=== PATIENT | male | born 1995 | race African-American/Black ===

== ENCOUNTER 2021-07-20 15:20 | Inpatient (IN) ==
[2021-07-20] MEDS ORDERED: dexAMETHasone 6 MG in SYRINGE 0 ML IV ONE (15:42)
--- NOTE | 2021-07-20 15:52 | Emergency Department Note ---
History of Present Illness General Chief complaint: Shortness of Breath/Dyspnea Stated complaint: covid + Time Seen by Provider: 07/20/21 15:25 Source: patient Mode of arrival: other History of Present Illness Provider complaint: Shortness of breath and hypoxemia Onset (ago): week(s) Location: chest Pain Consistency: + constant Maximum Pain Intensity: 0 Quality: + other (Short of breath) Relieved By: + other (Oxygen) Associated symptoms: + cough, + fever/chills and + shortness of breath; no chest pain or no nausea/vomiting This is a 26-year-old brought in from the local correctional facility for hypoxemia. The patient was diagnosed with COVID-19. He has had symptoms for about 14 days at least. He has had a cough, shortness of breath and fevers. He denies any loss of taste or smell or diarrhea. He was seen earlier today and discharged home after evaluation.. Prior to arrival they checked his oxygen level and it was in the 80s on room air. He was subsequently sent here for further care and evaluation. EMS placed him on 4 L of nasal cannula and his O2 saturation went up to 99%. He denies any vomiting, diarrhea, abdominal pain, leg swelling or pain or chest pain. Home Medications Medication Instructions Recorded Confirmed Type ascorbic acid (vitamin C) 500 mg 1,000 mg PO DAILY 07/20/21 07/20/21 History tablet (Vitamin C) aspirin 81 mg tablet,delayed 81 mg PO DAILY 07/20/21 07/20/21 History release (Aspirin Low Dose) cholecalciferol (vitamin D3) 50 50 mcg PO DAILY 07/20/21 07/20/21 History mcg (2,000 unit) tablet (Vitamin D3) hydroxyzine pamoate 25 mg capsule 25 mg PO TID PRN 07/20/21 07/20/21 History multivitamin 1 tab PO DAILY 07/20/21 07/20/21 History sertraline 25 mg tablet 25 mg PO DAILY 07/20/21 07/20/21 History zinc sulfate 50 mg zinc (220 mg) 50 mg PO TID 07/20/21 07/20/21 History capsule (Zinc-220) Allergies Allergy/AdvReac Type Severity Reaction Status Date / Time No Known Allergies Allergy Verified 07/20/21 16:50 Past Med/Surg History Medical History Asthma Surgical History No significant past surgical history Social History Smoking Status: Never smoker Preferred Language: Vietnamese Current Living Situation: Homeless Feels Safe at Home: Yes Safety Concerns Comment: Homeless Review of Systems See HPI for pertinent positives & negatives. and A total of 10 systems reviewed and were otherwise negative Physical Exam Vital Signs Vital Signs - 24 hr 07/20/21 15:28 07/20/21 15:30 07/20/21 16:00 Temperature 37.1 C Temperature Source Oral Pulse Rate 86 83 87 Pulse Rate from SpO2 Sensor 82 85 Pulse Rhythm Regular Pulse Strength Normal Respiratory Rate 20 17 21 Respiratory Effort / Characteristics Non-Labored Respiratory Depth Normal Respiratory Pattern Regular Blood Pressure 123/72 123/72 120/71 Blood Pressure Mean 89 89 87 Blood Pressure Position Lying Pulse Oximetry 100 100 100 Oxygen Delivery Method Nasal Cannula Oxygen Flow Rate 4 Sepsis Recent Fever Within 48 Hours Yes Sepsis New/Unexplained Change in Mental Status N/A Sepsis Action Taken by Nursing No Action Required 07/20/21 16:33 07/20/21 17:00 07/20/21 17:30 Temperature Temperature Source Pulse Rate 80 Pulse Rate from SpO2 Sensor 81 75 76 Pulse Rhythm Pulse Strength Respiratory Rate 26 H 22 23 Respiratory Effort / Characteristics Respiratory Depth Respiratory Pattern Blood Pressure 113/72 108/67 Blood Pressure Mean 85 80 Blood Pressure Position Pulse Oximetry 98 97 96 Oxygen Delivery Method Oxygen Flow Rate Sepsis Recent Fever Within 48 Hours Sepsis New/Unexplained Change in Mental Status Sepsis Action Taken by Nursing Constitutional: Vital signs reviewed. Hypoxemic. Eyes: Pupils are equal round reactive to light. Conjunctiva are noninjected. ENT: Pharynx is clear without erythema or exudate. Mucous membranes are moist. Neck supple without meningeal signs. Respiratory: Clear to auscultation bilaterally. Breath sounds are equal bilaterally. Tachypneic. Cardiovascular: Regular rate and rhythm. No rubs or gallops. GI: Soft, nondistended and nontender. Bowel sounds are present. Musculoskeletal: No peripheral edema. No lower extremity tenderness. Integumentary: No cyanosis. or jaundice. Neurological: The patient is awake and alert. No focal deficits. Psychiatric: Normal affect. Not anxious appearing. Course Administered Medications Discontinued Medications Dexamethasone 6 mg/ Syringe 1.5 mls @ 1 mls/min IV ONE ONE Stop: 07/20/21 15:43 Last Admin: 07/20/21 16:06 Dose: Not Given Documented by: [id number] Medical Decision Making Differential Diagnosis Hypoxemia, COVID-19, multifocal pneumonia, anemia, pulmonary embolism Medical Records Attestation: I reviewed the patient's medical records. I did perform a limited focused review of portions of the patient's old chart on the electronic medical record. The patient was seen here earlier this morning for COVID-19. He had pneumonia on chest x-ray and had unremarkable blood work except for mild anemia. No H&P is available. Home Medications Current Medication List: was personally reviewed by me Laboratory Data Attestation: I reviewed the patient's lab results. Lab Results 07/20/21 07/20/21 07/20/21 Range/Units 16:42 16:42 16:42 D-Dimer 2320 H* (0-500) ug/L FEU C-Reactive Protein 2.83 H (0-0.29) mg/dl COVID-19 Eval Order Covid19 at [facility] MDM Narrative I did evaluate the patient as noted above. He has hypoxia in the setting of Covid. The patient was placed on some low oxygen at 4 L via nasal cannula. His O2 saturation is now 100%. IV access was established. I did place an order for continuous cardiac monitoring. The monitor showed normal sinus rhythm at a rate of 88 bpm. I did order and personally review the patient's 12-lead EKG as described above. I did discuss the case with Dr. Santana of the [facility] hospitalist group. He requested that we obtain blood work and he would hospitalize the patient. He did not want a repeat chest x-ray at this time given he had one just 12 hours ago. I did order and review the patient's blood work as noted in the electronic medical record. I did not treat the patient with Decadron because he states that he got a dose earlier this morning. His blood work showed a C-reactive protein at 2.8. D-dimer is elevated at 2320. Dr. Santana did order a CT angiogram of the chest which is currently pending. Impression & Plan Hypoxia, Pneumonia due to 2019 novel coronavirus Discharge Plan Visit Data Chief Complaint: Shortness of Breath/Dyspnea Stated Complaint: covid + ED Provider: Matthew Hsu Discharge Problem: Hypoxia, Pneumonia due to 2019 novel coronavirus Patient Disposition: Being Evaluated by Hospitalist Forms Stand Alone Forms: My [facility] Prescriptions Prescriptions: No Action multivitamin Tablet 1 tab PO DAILY RF: 0 aspirin [Aspirin Low Dose] 81 mg Tablet,Delayed Release (Dr/Ec) 81 mg PO DAILY RF: 0 ascorbic acid (vitamin C) [Vitamin C] 500 mg Tablet 1,000 mg PO DAILY RF: 0 sertraline 25 mg Tablet 25 mg PO DAILY RF: 0 hydroxyzine pamoate 25 mg Capsule 25 mg PO TID PRN (Reason: Unknown) RF: 0 cholecalciferol (vitamin D3) [Vitamin D3] 50 mcg (2,000 unit) Tablet 50 mcg PO DAILY RF: 0 zinc sulfate [Zinc-220] 50 mg zinc (220 mg) Capsule 50 mg PO TID RF: 0 Referrals Referrals: [facility] [Primary Care Provider] -
--- NOTE | 2021-07-20 16:34 | History & Physical Report ---
Date of Service July 20, 2021 Assessment & Plan (1) COVID-19: Plan: Decadron given in the ER earlier this morning. No sustaining hypoxia to suggest need for ongoing dexamethasone however. Suspect hypoxia due to mucus plugging below. D-dimer 0 - will get CT for PE to rule this out (2) Hypoxia: Plan: Now completely recovered on room air. Suspect he is mucus plugging whenever he lies flat. Keep elevated > 30 degrees. Incentive spirometer and flutter valve. If hypoxic tomorrow consider ongoing steroids but otherwise will discontinue. Plan: VTE Prophylaxis - pending CT for PE Diet - regular Disposition - admission to med/surg Admission and Anticipated Discharge Date Admission Date: July 20, 2021 Anticipated date of discharge: 07/21/21 History of Present Illness Chief Complaint: Shortness of breath, hypoxia Primary Care Provider: [facility] Anthony Dennison is a 26 year old male who presents to the ER with chest tightness and shortness of breath with hypoxia. He has known COVID-19 pneumonia, currently on day 11 of his illness. He is not vaccinated. He initially presented to the ER in the early hours of this morning with the same symptoms and was discharged back to the nursing home however was on room air at that time. He was given dexamethasone 6mg IV on that visit. When he went back he had another similar episode of shortness of breath when he lied flat, became acutely short of breath and was coughing up phlegm. His O2 sats reportedly dropped to the mid 80s, 1.5 hours prior to admission. Currently in the ER he is requiring 4LPM O2. He currently feels back to when he was discharged earlier and reports these episodes happen suddenly secondary to having to cough up phlegm when he lies flat. Chest pain is central, sharp, on inspiration. Previous severity 5/10 (on last ER visit), currently 3/10. He has ongoing other COVID symptoms such as chills and sweats, shortness of breath (especially on lying flat and on exertion), diarrhea, loss of taste and smell. Due to continued hypoxia he was referred to medicine for admission and ongoing management of COVID-19 pneumonia and hypoxia. Allergies Allergy/AdvReac Type Severity Reaction Status Date / Time No Known Allergies Allergy Verified 07/20/21 16:50 Home Medications Medication Instructions Recorded Confirmed Type ascorbic acid (vitamin C) 500 mg 1,000 mg PO DAILY 07/20/21 07/20/21 History tablet (Vitamin C) aspirin 81 mg tablet,delayed 81 mg PO DAILY 07/20/21 07/20/21 History release (Aspirin Low Dose) cholecalciferol (vitamin D3) 50 50 mcg PO DAILY 07/20/21 07/20/21 History mcg (2,000 unit) tablet (Vitamin D3) hydroxyzine pamoate 25 mg capsule 25 mg PO TID PRN 07/20/21 07/20/21 History multivitamin 1 tab PO DAILY 07/20/21 07/20/21 History sertraline 25 mg tablet 25 mg PO DAILY 07/20/21 07/20/21 History zinc sulfate 50 mg zinc (220 mg) 50 mg PO TID 07/20/21 07/20/21 History capsule (Zinc-220) Past Med/Surg History Medical History Asthma Surgical History No significant past surgical history Social History Smoking Status: Former smoker Second Hand Exposure: No; Hx Substance Use: Yes Preferred Language: Persian Communication Ability: Effective 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 Beliefs That Will Affect Care: None Current Living Situation: Other Current Living Situation Comment: [facility] Feels Safe at Home: Yes Safety Concerns: Feels Safe At This Time Safety Concerns Comment: Homeless Assistive Devices: None Review of Systems Review of Systems: All systems reviewed & are unremarkable except as noted in HPI & below Physical Exam Constitutional: WD/WN, vitals as above no acute distress Eyes: PERRL, conjunctivae normal, anicteric sclerae ENMT: external ear and nose normal, oropharynx normal Neck: trachea midline, no thyromegaly Respiratory: normal respiratory effort; no respiratory distress, no labored breathing, does not use accessory muscles and not tachypneic Auscultation: + crackles (coarse throughout); no diminished lung sounds and no wheezes Cardiovascular: RRR, no murmur, no edema Gastrointestinal (Abdomen): normal bowel sounds, soft, nontender, no hepatosplenomegaly Musculoskeletal: no cyanosis or clubbing, extremities motor strength 5/5 Skin: no rashes, warm and dry Neurologic: moves all extremities and awake; no focal motor deficits and not confused Psychiatric: A+Ox3, euthymic affect Results & Data Results & Data ([facility]) Vital Signs (Past 12 Hours) Vital Signs Temp Pulse Resp BP Pulse Ox 07/20/21 16:00 87 21 120/71 100 07/20/21 15:30 83 17 123/72 100 07/20/21 15:28 37.1 C 86 20 123/72 100 Diagnostic Findings XR chest 1V portable CLINICAL HISTORY: Dyspnea COMPARISON STUDY: No previous studies for comparison. FINDINGS: No pneumothorax. No pleural effusion. There are patchy mixed reticular nodular opacities are seen throughout bilateral mid to lower lungs with mild superimposed hazy component which is seen within right upper-mid lung and left lower lung and could represent multifocal pneumonia/Covid. Cardiomediastinal silhouette is within normal limits in size. No significant pulmonary vascular congestion.. Osseous structures: unremarkable IMPRESSION: 1. Patchy opacities are seen bilaterally and could represent atypical pneumonia/Covid. Short-term follow-up is suggested. Medications Administered ER Medications Given: None ECG Indication: chest pain and SOB/dyspnea Rate (beats per minute): 78 Rhythm: normal sinus Findings: no acute ischemic change Comparison ECG Date: no prior available Code Status & VTE Plan Code Status Full VTE Prophylaxis Plan VTE Prophylaxis will be ordered: Yes PG Care Time/CCT Total # of Minutes Spent Total Time Spent with Patient: Total time spent is greater than 50% in coordination of care (as documented) at patient's floor/unit and/or counseling patient: Coding Level of Care Code 56154 Initial Inpt Care Lvl 2 Diagnoses COVID-19 U07.1 Hypoxia R09.02
[2021-07-20 17:25] LABS: D Dimer 2320 ug/L FEU (0-500)
[2021-07-20 17:51] VITALS: O2SAT 96
[2021-07-20] MEDS ORDERED: ACETAMINOPHEN 325 MG TAB PO PRN (19:44)
[2021-07-20] MEDS ORDERED: ONDANSETRON INJ 2 MG/ML 2 ML VIAL IV PRN (19:44)
[2021-07-20] MEDS ORDERED: ALUMINUM/MAGNESIUM SUSP 30 ML UDC PO PRN (19:44)
[2021-07-20] MEDS ORDERED: POLYETHYLENE (MIRALAX) 17 GM PACK PO PRN (19:44)
[2021-07-20] MEDS ORDERED: hydrOXYzine HCl 25 MG TAB PO PRN (19:44)
[2021-07-20] MEDS ORDERED: OPTIRAY 320 125ml IV ONE (20:10)
--- NOTE | 2021-07-20 20:24 | CT Scan Report ---
CHEST CTA for PULMONARY ARTERIES CT DOSE: 399.67 mGy.cm HISTORY: Shortness of breath. Covid positive. TECHNIQUE: Multiaxial CT images of the chest were performed following the intravenous administration of contrast to evaluate the pulmonary arteries. Maximal intensity projection images were also obtaine d. A dose lowering technique was utilized adhering to the principles of ALARA. COMPARISON STUDY: Chest 07/20/2021. FINDINGS: Limited views of the upper abdomen demonstrate a normal liver and spleen. No pleural or per icardial effusions. The heart is normal in size. Mild right hilar and subcarinal lymphadenopathy. Thi s is likely reactive. Normal esophagus. Normal caliber thoracic aorta with no evidence for dissection . No filling defects within the pulmonary arteries to suggest a pulmonary embolus. Nondiagnostic eval uation of a few the right lower lobe segmental pulmonary arteries due to the respiratory motion artif act. No fractures within the visualized osseous structures. No pneumothorax. The central airways are patent. Multifocal small patchy bilateral airspace opacities most pronounced within the right upper l obe. This likely represents a viral pneumonia. IMPRESSION: 1. No evidence for pulmonary embolus. 2. Multifocal small patchy bilateral airspace opacities most pronounced within the right upper lobe. This likely represents a mild to moderate viral pneumonia. ACT 112: Negative or not required by law. Electronically signed by: Evin Heaton M.D. 07/20/2021 8:22 PM
[2021-07-20] MEDS: ZINC SULFATE 220 MG CAPSULE PO SCH (21:23)
[2021-07-20] MEDS: BENZONATATE 100 MG CAPSULE PO PRN (22:02)
[2021-07-20 22:59] VITALS: TEMP 98.2
[2021-07-21] MEDS: BENZONATATE 100 MG CAPSULE PO PRN (06:11)
[2021-07-21 08:08] VITALS: BP 109/67; PULSE 74
[2021-07-21] MEDS ORDERED: ASCORBIC ACID 500 MG TAB PO SCH (09:00)
[2021-07-21] MEDS ORDERED: CHOLECALCIFEROL 1,000 UNITS 25 MCG TAB PO SCH (09:00)
[2021-07-21] MEDS ORDERED: MULTIVITAMIN TAB PO SCH (09:00)
[2021-07-21] MEDS ORDERED: SERTRALINE HCL 50 MG TABLET PO SCH (09:00)
[2021-07-21] MEDS ORDERED: ENOXAPARIN INJ 40 MG/0.4 ML SYR SQ SCH (09:00)
[2021-07-21] MEDS ORDERED: ASPIRIN 81 MG ECTAB PO SCH (09:00)
[2021-07-21] MEDS: ZINC SULFATE 220 MG CAPSULE PO SCH ×2 (09:55→13:48)
--- NOTE | 2021-07-21 13:14 | Discharge Summary ---
Date of Service July 21, 2021 Admission HPI Per Admitting Provider Anthony Dennison is a 26 year old male who presents to the ER with chest tightness and shortness of breath with hypoxia. He has known COVID-19 pneumonia, currently on day 11 of his illness. He is not vaccinated. He initially presented to the ER in the early hours of this morning with the same symptoms and was discharged back to the care home however was on room air at that time. He was given dexamethasone 6mg IV on that visit. When he went back he had another similar episode of shortness of breath when he lied flat, became acutely short of breath and was coughing up phlegm. His O2 sats reportedly dropped to the mid 80s, 1.5 hours prior to admission. Currently in the ER he is requiring 4LPM O2. He currently feels back to when he was discharged earlier and reports these episodes happen suddenly secondary to having to cough up phlegm when he lies flat. Chest pain is central, sharp, on inspiration. Previous severity 5/10 (on last ER visit), currently 3/10. He has ongoing other COVID symptoms such as chills and sweats, shortness of breath (especially on lying flat and on exertion), diarrhea, loss of taste and smell. Due to continued hypoxia he was referred to medicine for admission and ongoing management of COVID-19 pneumonia and hypoxia. Principal Diagnosis COVID 19 infection Discharge Exam General: well developed, well nourished, no acute distress, comfortable Neck: supple, trachea midline, normal thyroid Lungs: clear to auscultation bilaterally, normal respiratory effort, no accessory muscle use, no distress Heart: regular S1 and S2, no murmur, peripheral pulses normal, capillary refill normal, no edema Abdomen: soft, NT, ND, + BS, no hepatomegaly, normal to percussion Extremities: normal in appearance, no cyanosis, no petechiae, strength is 5/5 bilaterally Neuro: awake, cooperative, moves all extremities, no focal motor deficits, CN II-XII intact, sensation in extremities intact, normal speech Skin: warm, dry, no rash, normal turgor Psych: Awake, alert oriented x 3, euthymic affect Discharge Data Allergies Allergy/AdvReac Type Severity Reaction Status Date / Time No Known Allergies Allergy Verified 07/20/21 16:50 Consultations 07/20/21 15:42 ED Decision to Admit Stat Ordered Studies 07/20/21 17:39 CT angio chest PE protocol Stat Hospital Course (1) COVID-19: Decadron given in the ER on presentaion No sustaining hypoxia to suggest need for ongoing dexamethasone Suspect hypoxia due to mucus plugging below. D-dimer 2320 CTA chest shows no pulmonary embolism, trace evidence of pneumonia he has been saturating 95-97% on room air since admission continue to utilize flutter valve to bring up more sputum, continue incentive spirometer for deep breaths can lay prone when sleeping eat well and stay well hydrated (2) Hypoxia: Now completely recovered on room air. Suspect he is mucus plugging whenever he lies flat. resolved with flutter valve, coughing up mucous he has been 95-97% on room air [facility] Total Time Total Time Spent Total Time Spent (In Minutes): 33 Total Time Includes: Examination of the Patient, Discharge Planning and Medication Reconciliation Discharge Plan Discharge Items [facility]position[facility] Reason For Visit: COVID 19 PNEUMONIA, HYPOXIA Discharge Diagnosis: COVID 19 pneumonia Transient hypoxia, resolved Condition on Discharge: Good Goals: use flutter valve, incentive spirometer for lungs follow up with mental health services Activity: Resume your previous activity Weightbearing: Full weightbearing Non-emergency contact: Primary Care Provider Call non-emergency contact if: you have any medication questions and your symptoms worsen Follow-up/Referrals: [facility] [Primary Care Provider] - Diet: Regular Addtl Attending Provider Instructions: Medications: continue taking supplements for immune health Stay well nourished and well hydrated Oxygen levels have been 95-97% on room air all night and this morning likely what happened in the emergency room yesterday was some mucous plugging as saturations improved rapidly after coughing up phlegm instructions: use the flutter valve (green device) 5 to 6 times a day to help break up mucous and expectorate it use incentive spirometer once an hour while awake to help expand lungs stay upright while awake, when you are laying down you can lay on your stomach as this helps oxygen exchange please refer to the included list of resources for mental health evaluation and follow up services Pending Studies at Discharge: No Stand-Alone Forms: My [facility] Skilled Items Patient informed of condition?: Yes Discharge Level of Care: Other Communicable Disease: Yes Discharge Prognosis: Stable Lines: None Urinary Catheter: No Medications and DC Order Prescriptions: Continued multivitamin Tablet 1 tab PO DAILY RF: 0 aspirin [Aspirin Low Dose] 81 mg Tablet,Delayed Release (Dr/Ec) 81 mg PO DAILY RF: 0 ascorbic acid (vitamin C) [Vitamin C] 500 mg Tablet 1,000 mg PO DAILY RF: 0 sertraline 25 mg Tablet 25 mg PO DAILY RF: 0 hydroxyzine pamoate 25 mg Capsule 25 mg PO TID PRN (Reason: Unknown) RF: 0 cholecalciferol (vitamin D3) [Vitamin D3] 50 mcg (2,000 unit) Tablet 50 mcg PO DAILY RF: 0 zinc sulfate [Zinc-220] 50 mg zinc (220 mg) Capsule 50 mg PO TID RF: 0 Discharge Orders: Discharge Order (Routine); Ordered 07/21/21 Ordered By: Jacoby Castro Admission Data Admit Date/Time: 07/20/21 16:43 Attending Provider: Jacoby Castro Admit Provider: Phong Santana Primary Care Provider: [facility] Other Providers: Phong Santana Other Interventions: Discharge Summary Assessment (RN) Last Done: 07/21/21 13:29 Coding Level of Care Code D/C DAY MANAGEMENT >30 MINS Diagnoses COVID-19 U07.1 Hypoxia R09.02
--- NOTE | 2021-07-22 06:11 | Electrocardiogram Report ---
Test Reason : Blood Pressure : / mmHG Vent. Rate : 078 BPM Atrial Rate : 078 BPM P-R Int : 134 ms QRS Dur : 088 ms QT Int : 354 ms P-R-T Axes : 075 034 044 degrees QTc Int : 403 ms Normal sinus rhythm Early repolarization Normal ECG No previous ECGs available Confirmed by Enrico Vizcaino ([id number]) on 07/22/2021 6:11:00 AM Referred By: [facility] Confirmed By:Enrico Vizcaino
== END 2021-07-21 14:05 | DRG 177 ==
LOC: ED 15:20 → 3W 16:43 → SUATTDRO 16:43 → 3W 18:23
DX: Z79.899 Other long term (current) drug therapy; J12.82 Pneumonia due to coronavirus disease 2019; Z87.891 Personal history of nicotine dependence; Z79.82 Long term (current) use of aspirin; U07.1 COVID-19; J98.09 Other diseases of bronchus, not elsewhere classified; R79.1 Abnormal coagulation profile; R09.02 Hypoxemia; J45.909 Unspecified asthma, uncomplicated; D64.9 Anemia, unspecified